=== PATIENT | male | born 1980 | race American Indian/Alaskan Native ===

== ENCOUNTER 2020-10-12 07:05 | Day surgery (SDC) | payer BC ==
[~2020-10-12] VITALS: Ht 182.9 cm; Wt 112.8 kg
[~2020-10-12 07:05] MED LIST: CLOBET30L TOP; LATA.005SO BOTHEYES; SILD50TA PO
--- NOTE | 2020-10-12 11:54 | NUR ---
10/12/20 1154 Izzy Treviño LATE ENTRY----PATIENT HAD PROBLEMS OBSTRUCTING THROUGHOUT THE ENTIRE PROCEDURE. TURNED UP O2 TO 5L/NC. PATIENT BEGAN WRETCHING, GAVE ZOFRAN PER MD ORDER. SOON SUCTION CATHETER WAS INTRODUCED INTO HIS MOUTH THERE WAS BRIGHT RED BLOOD. THIS CONTINUED FOR THE FIRST FEW MINUTES OF SUCTIONING THEN IT DID CLEAR. OPA 10 WAS PLACED WITH SOME EFFORT HIS MOUTH WAS CLENCHED TIGHT. DID MANAGE TO OPEN ENOUGH TO INSERT THE OPA AND THEN THE REST OF THE PROCEDURE CONTINUED VERY SMOOTHLY. PROCEDURE FINISHED WITHOUT FURTHER PROBLEMS AND PATIENT STABLE FOR TRANSFER TO SDU
--- NOTE | 2020-10-12 11:55 | NUR ---
10/12/20 1155 Izzy Treviño LATE ENTRY----PATIENT WAS INSTRUCTED TO FOLLOW UP WITH PCP AND SEE IF HE CAN BE TESTED FOR SLEEP APNEA. THIS WAS WRITTEN DOWN AND EXPLAINED TO AND PATIENT AND BOTH VERBALIZE UNDERSTANDING
== END 2020-10-12 09:28 | disposition home or self-care (01) ==
LOC: ORSCSDS 07:05
PROVIDERS: Student in an Organized Health Care Education/Training Program
PROC: 3E0H8KZ Introduction of Other Diagnostic Substance into Lower GI, Via Natural or Artificial Opening Endoscopic (ICD-10-PCS; principal; 2020-10-12 08:15)
PROC: 0DBK8ZX Excision of Ascending Colon, Via Natural or Artificial Opening Endoscopic, Diagnostic (ICD-10-PCS; principal; 2020-10-12 08:15)
PROC: 0DBM8ZX Excision of Descending Colon, Via Natural or Artificial Opening Endoscopic, Diagnostic (ICD-10-PCS; principal; 2020-10-12 08:15)
DX: K92.1 Melena (principal); D12.2 Benign neoplasm of ascending colon
CPT/HCPCS: 88305; J2405; J2704; J7120